=== PATIENT | female | born 1965 | race Caucasian/White ===

== ENCOUNTER → 2016-05-24 | Outpatient (CLI) | payer BC ==
[~2016-05-24] MED LIST: ALBU17AE23 IH; BUDE0.5A IH; BUDE6HFA IH; CYCL10TA9; ESTR0.5T; ESTR0.9T; HYDR1TAB; LEVO750T6; METO50TA2; MNTL10T; NEXIUM; NEXIUM PO; ORPH1TAB6 PO; PRM25T; SERT100T8; SRTR100T; TRAM50TA2 PO
--- NOTE | 2016-05-24 17:33 | Diagnostic Imaging Report ---
CLINICAL INDICATION: Patient states stepped on dog yesterday and pain in fifth metatarsal. EXAM: X-ray of the left foot, three views. COMPARISON: None. FINDINGS: There is no evidence of acute fracture or dislocation. There are mildly hypertrophic calcaneal spurs at the plantar and Achilles attachments. The remainder of the foot is unremarkable. Fifth metatarsal region shows no significant abnormality. IMPRESSION: Mild calcaneal degenerative disease. Dictated by: Dictated on workstation # [id number]
== END ==
LOC: RAD 15:45
PROVIDERS: ATTEND Nurse Practitioner Family
DX: S99.922A Unspecified injury of left foot, initial encounter (principal); M79.672 Pain in left foot; X58.XXXA Exposure to other specified factors, initial encounter; Y99.8 Other external cause status
CPT/HCPCS: 73630

== ENCOUNTER 2017-01-08 06:36 | Emergency (ER) | payer BC ==
[~2017-01-08] VITALS: Ht 180.3 cm; Wt 100.2 kg
[2017-01-08] MEDS ORDERED: NS IV 1000 ML 1,000 ML IV ONE (06:53)
[2017-01-08 07:00] LABS: BASOPHILS % (AUTO) 0 % (0-10); EOSINOPHILS # (AUTO) 0.2 10^3/uL (0.0-0.3); EOSINOPHILS % (AUTO) 2 % (0-10); LYMPHOCYTES # (AUTO) 0.7 X 10^3 (1.0-4.0); LYMPHOCYTES % (AUTO) 9 % (12-44); MEAN CORPUSCULAR HEMOGLOBIN 31 PG (25-34); MEAN CORPUSCULAR HGB CONC 35 G/DL (32-36); MEAN CORPUSCULAR VOLUME 88 FL (80-99); MEAN PLATELET VOLUME 11.8 FL (7.4-10.4); MONOCYTES # (AUTO) 0.7 X 10^3 (0.0-1.0); MONOCYTES % (AUTO) 8 % (0-12); NEUTROPHILS # (AUTO) 6.9 X 10^3 (1.8-7.8); NEUTROPHILS % (AUTO) 81 % (42-75); PLATELET COUNT 212 10^3/uL (130-400); RED BLOOD COUNT 4.74 10^6/uL (4.35-5.85); RED CELL DISTRIBUTION WIDTH 14.2 % (10.0-14.5); WHITE BLOOD COUNT 8.5 10^3/uL (4.3-11.0)
--- NOTE | 2017-01-08 07:01 | ED Cardiac General ---
History of Present Illness General Stated Complaint: SOA,CHEST TIGHTNESS,LIGHTHEADED Source: patient, family (brother) Exam Limitations: no limitations History of Present Illness Time seen by provider: 06:50 Initial Comments Patient presents to ER by private conveyance with her brother and a chief complaint that yesterday she was having some tachycardia when she checked her blood pressure and has recently started a new medication Hydrocort thiazide with losartan. She says that she worked 2 shifts 12 hours for the past 2 days and has been feeling a little off but got worse this morning she was feeling a little lightheaded, short of breath without cough and very dry mouth. She drank some water this morning for coming in. She is having some chest pressure mostly on the left side but no pain. She has no coronary history however she does have a history of superventricular tachycardia after using albuterol inhalers had to be dealt with in the ER. She is a ER nurse. She does not have a history of hypothyroidism but does have hypertension. She denies diabetes, previous coronary disease, family history of early coronary disease, smoking history, hypercholesterolemia. She denies any nausea, numbness, tingling in the jaw, shoulder, arms, neck. She does not have a history of COPD/asthma or other lung disease. She's had no recent long trips or periods of immobility or recent surgeries. No history of Vchon-Snoolrrfy-Vryku, reentrant loops or atrial fibrillation, flutter. Allergies and Home Medications Allergies Uncoded Allergies: SULFA (Allergy, 08/20/09) Home Medications Cyclobenzaprine HCl 10 Mg Tablet, #60 (Reported) Estradiol 0.5 Mg Tablet, #90 (Reported) Metoprolol Tartrate 50 Mg Tablet, #90 (Reported) Sertraline HCl 100 Mg Tablet, #90 (Reported) Tramadol HCl 50 Mg Tablet, 50 MG PO Q6H PRN for PAIN, #15 Prescribed by: CHAD RENO on 08/31/15 0018 Review of Systems Constitutional: No chills, No diaphoresis, dizziness, No fever, malaise, No weakness EENTM: No Blurred Vision, No Double Vision Respiratory: Denies Cough, Shortness of Air, SOA With Exertion, SOA at Rest, Denies Wheezing Cardiovascular: See HPI, Denies Chest Pain, Denies Irregular Heart Rate, Lightheadedness, Denies Palpitations, Denies Syncope (she has felt near syncope) Gastrointestinal: Denies Abdomen Distended, Denies Abdominal Pain, Denies Constipated, Denies Diarrhea, Denies Nausea, Denies Vomiting Genitourinary: Denies Burning, Denies Discharge Musculoskeletal: No back pain, No joint pain Skin: No pruritus, No rash Psychiatric/Neurological: Depressed, Denies Headache, Denies Numbness, Denies Paresthesia, Denies Seizure, Denies Tingling, Denies Weakness Endocrine: Denies Intolerance to Cold, Denies Intolerance to Heat Past Ciysjgd-Sbxzsk-Ywpgsq Hx Patient Social History Alcohol Use: Occasionally Uses ( first first thing) Recreational Drug Use: No Smoking Status: Never a Smoker Recent Foreign Travel: No Contact w/Someone Who Travel: No Surgeries Surgeries: Section, Hysterectomy, Orthopedic Cardiovascular Cardiac Disorders: Hypertension Reproductive System Hx Reproductive Disorders: No Sexually Transmitted Disease: No Psychosocial Behavioral Health Disorders: Depression Physical Exam Vital Signs Vital Sign - Last 12Hours 01/08/17 06:50 Temp 97.5 Pulse 108 Resp 20 B/P (MAP) 140/93 Pulse Ox 99 O2 Delivery Room Air Capillary Refill : General Appearance: No Apparent Distress, WD/WN, Anxious HEENT: PERRL/EOMI, TMs Normal, Normal ENT Inspection, Pharynx Normal Neck: Full Range of Motion, Normal Inspection, Non Tender Respiratory: Chest Non Tender, Lungs Clear, Normal Breath Sounds, No Accessory Muscle Use, No Respiratory Distress Cardiovascular: Regular Rate, Rhythm, No Edema, No Gallop, No Murmur, Normal Peripheral Pulses, Tachycardia (100-110) Gastrointestinal: Normal Bowel Sounds, Non Tender, Soft Extremity: Normal Capillary Refill, Normal Inspection, Non Tender, No Calf Tenderness, No Pedal Edema Neurologic/Psychiatric: Alert, Oriented x3 Skin: Normal Color, Warm/Dry Lymphatic: No Adenopathy Focused Exam Evaluation Lactate Level Laboratory Tests 01/08/17 07:40: Lactic Acid Level 0.90 Lactic Acid Level Laboratory Tests Test 01/08/17 07:40 Lactic Acid Level 0.90 MMOL/L (0.50-2.00) Progress/Results/Core Measures Results/Orders Lab Results Laboratory Tests Test 01/08/17 06:50 01/08/17 07:10 01/08/17 07:40 01/08/17 08:55 Range/Units White Blood Count 8.5 4.3-11.0 10^3/uL Red Blood Count 4.74 4.35-5.85 10^6/uL Hemoglobin 14.5 11.5-16.0 G/DL Hematocrit 42 35-52 % Mean Corpuscular Volume 88 80-99 FL Mean Corpuscular Hemoglobin 31 25-34 PG Mean Corpuscular Hemoglobin Concent 35 32-36 G/DL Red Cell Distribution Width 14.2 10.0-14.5 % Platelet Count 212 130-400 10^3/uL Mean Platelet Volume 11.8 H 7.4-10.4 FL Neutrophils (%) (Auto) 81 H 42-75 % Lymphocytes (%) (Auto) 9 L 12-44 % Monocytes (%) (Auto) 8 0-12 % Eosinophils (%) (Auto) 2 0-10 % Basophils (%) (Auto) 0 0-10 % Neutrophils # (Auto) 6.9 1.8-7.8 X 10^3 Lymphocytes # (Auto) 0.7 L 1.0-4.0 X 10^3 Monocytes # (Auto) 0.7 0.0-1.0 X 10^3 Eosinophils # (Auto) 0.2 0.0-0.3 10^3/uL Basophils # (Auto) 0.0 0.0-0.1 10^3/uL Prothrombin Time 12.5 12.2-14.7 SEC INR Comment 0.9 0.8-1.4 Activated Partial Thromboplast Time 29 24-35 SEC D-Dimer 0.36 0.00-0.49 UG/ML Sodium Level 136 135-145 MMOL/L Potassium Level 3.3 L 3.6-5.0 MMOL/L Chloride Level 102 98-107 MMOL/L Carbon Dioxide Level 19 L 21-32 MMOL/L Anion Gap 15 H 5-14 MMOL/L Blood Urea Nitrogen 17 7-18 MG/DL Creatinine 0.76 0.60-1.30 MG/DL Estimat Glomerular Filtration Rate > 60 BUN/Creatinine Ratio 22 Glucose Level 132 H 70-105 MG/DL Calcium Level 9.1 8.5-10.1 MG/DL Magnesium Level 2.5 H 1.8-2.4 MG/DL Total Bilirubin 0.7 0.1-1.0 MG/DL Aspartate Amino Transf (AST/SGOT) 29 5-34 U/L Alanine Aminotransferase (ALT/SGPT) 49 0-55 U/L Alkaline Phosphatase 114 40-136 U/L Troponin I < 0.30 < 0.30 <0.30 NG/ML C-Reactive Protein High Sensitivity 3.19 H 0.00-0.50 MG/DL Total Protein 7.8 6.4-8.2 GM/DL Albumin 4.5 3.2-4.5 GM/DL Urine Color YELLOW Urine Clarity CLEAR Urine pH 6 5-9 Urine Specific [place] 1.020 1.016-1.022 Urine Protein NEGATIVE NEGATIVE Urine Glucose (UA) NEGATIVE NEGATIVE Urine Ketones NEGATIVE NEGATIVE Urine Nitrite NEGATIVE NEGATIVE Urine Bilirubin NEGATIVE NEGATIVE Urine Urobilinogen NORMAL NORMAL MG/DL Urine Leukocyte Esterase NEGATIVE NEGATIVE Urine RBC (Auto) NEGATIVE NEGATIVE Urine RBC NONE /HPF Urine WBC NONE /HPF Urine Squamous Epithelial Cells 10-25 H /HPF Urine Crystals NONE /LPF Urine Bacteria NEGATIVE /HPF Urine Casts NONE /LPF Urine Mucus NEGATIVE /LPF Urine Culture Indicated NO Lactic Acid Level 0.90 0.50-2.00 MMOL/L Thyroid Stimulating Hormone (TSH) 1.20 0.35-4.94 UIU/ML My Orders Orders - IRINEO HENDERSON Cbc With Automated Diff (01/08/17 06:53) Comprehensive Metabolic Panel (01/08/17 06:53) Hs C Reactive Protein (01/08/17 06:53) Magnesium (01/08/17 06:53) Protime With Inr (01/08/17 06:53) Partial Thromboplastin Time (01/08/17 06:53) Troponin I (01/08/17 06:53) Ua Culture If Indicated (01/08/17 06:53) Chest Pa/Lat (2 View) (01/08/17 06:53) Ekg Tracing (01/08/17 06:53) Monitor-Rhythm Ecg Trace Only (01/08/17 06:53) Saline Lock/Iv-Start (01/08/17 06:53) Ns Iv 1000 Ml (Sodium Chloride 0.9%) (01/08/17 06:53) Lactic Acid Analyzer (01/08/17 07:49) Blood Culture (01/08/17 07:49) Potassium Chloride (Tablet) (K Dur Table (01/08/17 08:00) Fibrin Degradation Products (01/08/17 08:07) Troponin I (01/08/17 08:45) Thyroid Stimulating Hormone (01/08/17 08:58) Orthostatic Vital Signs (01/08/17 08:58) Medications Given in ED Current Medications Medications Dose Ordered Sig/[place] Route Start Time Stop Time Status Last Admin Dose Admin Potassium Chloride 20 meq ONCE ONCE PO 01/08/17 08:00 01/08/17 08:01 DC 01/08/17 09:54 20 MEQ Sodium Chloride 1,000 ml @ 0 mls/hr Q0M ONCE IV 01/08/17 06:53 01/08/17 06:56 DC 01/08/17 07:46 1,000 MLS/HR Vital Signs/I&O Vital Sign - Last 12Hours 01/08/17 06:50 Temp 97.5 Pulse 108 Resp 20 B/P (MAP) 140/93 Pulse Ox 99 O2 Delivery Room Air Progress Note #1: Time: 07:03 Progress Note PE seems less likely given the possibly of risk factors and no cough or shortness of breath accompanied with decreased sats. Her tachycardia does not look like a supraventricular tachycardia and EKG does not show atrial fibrillation. We will go ahead and work her up for a coronary cause as well as a pulmonary cause for the chest x-ray. Plan on doing a two-hour troponin rule out. She is on hormone replacement therapy. Progress Note #2: Time: 08:08 Progress Note No leukocytosis, fever, evidence of DVT and then initial troponin was negative. CRP is elevated but is nonspecific. She says she gets lightheaded especially when walking up stairs or exerting herself so we will go ahead and obtain a d- dimer and if it's positive a CTA. Discussed this with the patient. Progress Note #3: Time: 10:21 Progress Note The hypokalemia, hypotension, tachycardia and positive orthostatic vital signs with tachycardia on postural change point less 2 pots and more to iatrogenic causes such as the recently started hydrochlorothiazide. I recommended that she stop using hot chlorothiazide follow-up with her primary care physician. No other emergent situation has been identified today. ECG Initial ECG Impression Date: Jan 08, 2017 Initial ECG Impression Time: 06:54 Initial ECG Rate: 93 Initial ECG Rhythm: Normal Sinus Initial ECG Intervals: Normal Initial ECG Impression: Normal Initial ECG Comparisson: No Previous ECG Available Comment No tachycardia, T-wave elevation or depression. Diagnostic Imaging Diagonstic Imaging: Xray Plain Films/CT/US/NM/MRI: chest Comments Negative for acute heart and pulmonary processes. NAME: CHRISTINE SANABRIA MED REC#: [id number] PHYSICIAN: IRINEO HENDERSON MD CC: CHAD MADDOX MD; IRINEO HENDERSON Page 1 of 1 RADIOLOGY REPORT VIA [place], [place] CC: CHAD MADDOX MD; IRINEO HENDERSON Page 1 of 1 RADIOLOGY REPORT NAME: CHRISTINE SANABRIA MED REC#: [id number] PT STATUS: REG ER : 1965 PHYSICIAN: IRINEO HENDERSON MD ADMIT DATE: 01/08/17/ER Signed Date of Exam: 01/08/17 CHEST PA/LAT (2 VIEW) INDICATION: Shortness of breath and tachycardia PA and lateral chest Heart size and pulmonary vascularity are normal. Lungs are clear. There are no effusions or pneumothoraces. IMPRESSION: Negative chest Dictated by: Dictated on workstation # [id number] Dict: 01/08/17726 Trans: 01/08/17747 Interpreted by: CHAD MADDOX MD Electronically signed by: CHAD MADDOX MD 01/08/17747 Reviewed: Reviewed by Me Departure Impression Impression: Primary Impression: Orthostatic hypotension Additional Impression: Dehydration, mild Disposition: 01 HOME, SELF-CARE Condition: Stable Departure-Patient Inst. Decision time for Depature: 10:23 Referrals: HUSEYIN MILIAN MD (PCP/Family) Primary Care Physician Patient Instructions: Orthostatic Hypotension (DC) Add. Discharge Instructions: To prevent falls make sure you dangle her feet over the side of the bed for at least 10 seconds and then when you stand up before you start walking stand for 5 -10 seconds and allow your body to equilibrate your blood pressure. Please discontinue the hydrochlorothiazide and follow-up the next week or 2 with your primary care physician for continued blood pressure management. As long as you' re able to eat and drink your potassium should improve however you can eat banana or other potassium rich foods such as Gatorade. Discontinue the hydrochlorothiazide will probably correct your potassium as well. Please return to the ER if you experience chest pain, shortness of breath or nausea and vomiting. Continue taking your losartan that you're on prior to the combination HCTZ/losartan pill. Copy Copies To 1: HUSEYIN MILIAN MD, TITUS J Jan 08, 2017 07:01
[2017-01-08 07:09] LABS: INR 0.9 (0.8-1.4); PROTHROMBIN TIME PATIENT 12.5 SEC (12.2-14.7)
[2017-01-08 07:20] LABS: ALANINE AMINOTRANSFERASE 49 U/L (0-55); ALBUMIN 4.5 GM/DL (3.2-4.5); ANION GAP 15 MMOL/L (5-14); ASPARTATE AMINO TRANSFERASE 29 U/L (5-34); BILIRUBIN,TOTAL 0.7 MG/DL (0.1-1.0); BLOOD UREA NITROGEN 17 MG/DL (7-18); BUN/CREATININE RATIO 22; CALCIUM 9.1 MG/DL (8.5-10.1); CARBON DIOXIDE 19 MMOL/L (21-32); CHLORIDE 102 MMOL/L (98-107); CREATININE SERUM 0.76 MG/DL (0.60-1.30); GFR ESTIMATED > 60; GLUCOSE 132 MG/DL (70-105); MAGNESIUM 2.5 MG/DL (1.8-2.4); POTASSIUM 3.3 MMOL/L (3.6-5.0); SODIUM 136 MMOL/L (135-145); TOTAL PROTEIN 7.8 GM/DL (6.4-8.2); hs C REACTIVE PROTEIN 3.19 MG/DL (0.00-0.50)
[2017-01-08 07:22] LABS: BILIRUBIN,URINE NEGATIVE (NEGATIVE); KETONES,URINE NEGATIVE (NEGATIVE); LEUKOCYTE ESTERASE ,URINE NEGATIVE (NEGATIVE); NITRITE,URINE NEGATIVE (NEGATIVE); PH,URINE 6 (5-9); PROTEIN,URINE NEGATIVE (NEGATIVE); UROBILINOGEN,URINE NORMAL (NORMAL)
[2017-01-08 07:26] LABS: TROPONIN I < 0.30 NG/ML (<0.30)
--- NOTE | 2017-01-08 07:30 | Diagnostic Imaging Report ---
INDICATION: Shortness of breath and tachycardia PA and lateral chest Heart size and pulmonary vascularity are normal. Lungs are clear. There are no effusions or pneumothoraces. IMPRESSION: Negative chest Dictated by: Dictated on workstation # [id number]
[2017-01-08] MEDS ORDERED: KCL 20 MEQ TAB (K-DUR) PO ONE (08:00)
[2017-01-08 10:40] VITALS: BP 103/77
== END 2017-01-08 10:40 | disposition home or self-care (01) ==
LOC: EDUNIT# 06:36 → ER 06:38
DX: I95.1 Orthostatic hypotension (principal); E86.0 Dehydration; I10 Essential (primary) hypertension; F32.9 Major depressive disorder, single episode, unspecified; Z90.710 Acquired absence of both cervix and uterus; Z87.59 Personal history of other complications of pregnancy, childbirth and the puerperium
CPT/HCPCS: 36415; 71020; 80053; 81000; 83605; 83735; 84443; 84484; 85025; 85379; 85610; 85730; 86141; 87040; 93005; 93041

== ENCOUNTER 2021-04-26 21:21 | Emergency (ER) | payer BC ==
[~2021-04-26] VITALS: Ht 180.3 cm; Wt 111.6 kg
[~2021-04-26 21:21] MED LIST changes: +CYCL10TA25; -CYCL10TA9; +METO50TA15; -METO50TA2; +SERT-414; -SERT100T8; -TRAM50TA2 PO; +TRM50T PO
--- NOTE | 2021-04-26 22:08 | ED Cough/URI ---
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 MILIAN Allergies and Home Medications Allergies Uncoded Allergies: SULFA (Allergy, Unknown, 04/26/21) Patient Home Medication List Home Medication List Reviewed: Yes Amoxicillin (Amoxicillin) 875 Mg Tablet, 875 MG PO BID Prescribed by: JEISON COREAS on 04/26/212220 Ciprofloxacin HCl (Ciprofloxacin HCl) 2.5 Ml Drops, 2.5 ML OP QID Prescribed by: JEISON COREAS on 04/26/212220 Cyclobenzaprine HCl (Cyclobenzaprine HCl) 10 Mg Tablet, (Reported) Entered as Reported by: KERI CONTRERAS on 08/30/15 234 Estradiol (Estradiol Tablet) 0.5 Mg Tablet, (Reported) Entered as Reported by: KERI CONTRERAS on 08/30/156 Levalbuterol Tartrate (Xopenex Hfa) 15 Gm Hfa.aer.ad, 15 GM INH Q8 Prescribed by: JEISON COREAS on 04/26/212220 Metoprolol Tartrate (Metoprolol Tartrate) 50 Mg Tablet, (Reported) Entered as Reported by: KERI CONTRERAS on 08/30/15 234 Sertraline HCl (Sertraline HCl) 100 Mg Tablet, (Reported) Entered as Reported by: KERI CONTRERAS on 08/30/15 234 Tramadol HCl (Tramadol HCl) 50 Mg Tablet, 50 MG PO Q6H PRN for PAIN Prescribed by: CHAD RENO on 08/31/15 0018 Review of Systems Review of Systems Constitutional: see HPI, fever EENTM: see HPI, nose congestion, throat pain Respiratory: see HPI, cough, short of breath Cardiovascular: no symptoms reported Gastrointestinal: no symptoms reported Genitourinary: no symptoms reported Musculoskeletal: see HPI Skin: no symptoms reported Psychiatric/Neurological: See HPI, Headache Past Uvauquo-Xwlxii-Tvrpgq Hx Patient Social History Smoking Status: Never a Smoker Smokeless Tobacco Frequency: Never a User Use of E-Cig and/or Vaping Natanael: Never a User Substance use?: No Alcohol Use?: No Pt feels they are or have been: No Immunizations Up To Date First/Initial COVID19 Vaccinat: "6 MONTHS AGO" COVID19 Vaccine Automatic Bandsaw Tender: MODERNA Past Medical History Surgeries: Yes (R elbow) Section, Hysterectomy, Orthopedic Respiratory: No Cardiac: Yes Hypertension Neurological: No Reproductive Disorders: No Sexually Transmitted Disease: No Genitourinary: No Gastrointestinal: No Musculoskeletal: Yes (TENSION AND KNOTS IN SHOULDERS THAT CAUSE HEADACHES) Endocrine: No Cancer: No Psychosocial: Yes Depression Blood Disorders: Yes Physical Exam Vital Signs - First Documented Capillary Refill : Height: 5'11" Weight: 221lbs. 0oz. 100.152519wm; 28.87 BMI Method:Stated General Appearance: WD/WN, no apparent distress HEENT: TMs normal, pharynx normal, other (LEFT EYE --CONJUNCTIVA INFLAMED WITH PURULENT DRAINAGE. NASAL CONGESTION, AND LEFT MAXILLARY SINUS TENDERNESS. ) Neck: non-tender, full range of motion, supple, lymphadenopathy (R) (ANTERIOR), lymphadenopathy (L) (ANTERIOR) Respiratory: normal breath sounds, no respiratory distress, no accessory muscle use Cardiovascular: regular rate, rhythm, no murmur Extremities: no pedal edema, normal capillary refill Neurologic/Psychiatric: no motor/sensory deficits, alert, normal mood/affect, oriented x 3 Skin: normal color, warm/dry Progress/Results/Core Measures Suspected Sepsis SIRS Temperature: Pulse: Respiratory Rate: Blood Pressure / Mean: Results/Orders Lab Results Laboratory Tests Test 04/26/21 22:05 Range/Units My Orders Orders - LYUDMILA,JEISON K DO Influenza A & B Antigens (04/26/21 22:05) Coronavirus Sars-Cov-2 So 2019 (04/26/21 22:05) Vital Signs/I&O 04/26/21 04/26/21 21:50 21:50 Temp 37.0 Pulse 92 Resp 17 B/P (MAP) 191/104 (133) O2 Delivery Room Air Room Air Capillary Refill : Progress Note : Progress Note PLACED IN ISOLATION ROOM PPE WORN COVID AND FLU TESTING DONE NO COUGH NO DYSPNEA NO HYPOXIA NO FEVER Departure Impression Primary Impression: Person under investigation for COVID-19 Additional Impressions: Left conjunctivitis Sinusitis Disposition: HOME, SELF-CARE Condition: Stable Departure-Patient Inst. Decision time for Depature: 22:08 Referrals: HUSEYIN MILIAN MD (PCP/Family) Primary Care Physician Patient Instructions: COVID-19 Tests, Preventing the Spread of an Infectious Disease, Sinusitis in Adults, Conjunctivitis ([place]) Add. Discharge Instructions: LOTS OF CLEAR LIQUIDS TYLENOL AND MOTRIN NEEDED FOR PAIN OR FEVER OVER THE COUNTER MEDICATIONS FOR COUGH AND CONGESTION NASACORT OR FLONASE NASAL SPRAY DAILY FOR SINUSES FOLLOW UP WITH YOUR DR IN 2-3 DAYS FOR FURTHER CARE, RETURN TO ER IF WORSE All discharge instructions reviewed with patient and/or family. Voiced understanding. Scripts Levalbuterol Tartrate (Xopenex Hfa) 15 Gm Hfa.aer.ad 15 GM INH Q8, #1 EA Prov: JEISON COREAS DO 04/26/21 Ciprofloxacin HCl (Ciprofloxacin HCl) 2.5 Ml Drops 2.5 ML OP QID, #1 EA Prov: JEISON COREAS DO 04/26/21 Amoxicillin (Amoxicillin) 875 Mg Tablet 875 MG PO BID, #20 TAB Prov: JEISON COREAS DO 04/26/21 JEISON COREAS DO Apr 26, 2021 22:08
[2021-04-26] MEDS ORDERED: CIPR2.5D3 OP (22:21)
[2021-04-26] MEDS ORDERED: AMOX875T2 PO (22:21)
[2021-04-26] MEDS ORDERED: NF-XOP-HFA INH (22:21)
[2021-04-26 22:33] VITALS: BP 173/93
== END 2021-04-26 22:33 | disposition home or self-care (01) ==
LOC: EDUNIT# 21:21 → ER 21:23
DX: H10.9 Unspecified conjunctivitis (principal); J32.9 Chronic sinusitis, unspecified; I10 Essential (primary) hypertension; F32.9 Major depressive disorder, single episode, unspecified; Z20.822 Contact with and (suspected) exposure to COVID-19; Z79.899 Other long term (current) drug therapy
CPT/HCPCS: 87804; 99283

== ENCOUNTER → 2021-04-29 | Outpatient (CLI) | payer BC ==
[~2021-04-29] MED LIST changes: +AMOX875T2 PO; +CIPR2.5D3 OP; +NF-XOP-HFA INH
== END ==
LOC: LABNPT 10:32
PROVIDERS: ATTEND Emergency Medicine
DX: Z20.822 Contact with and (suspected) exposure to COVID-19 (principal)
CPT/HCPCS: 87636